=== PATIENT | male | born 1965 | race Hispanic/Latino ===

== ENCOUNTER 2024-07-08 06:25 | Day surgery (SDC) | payer OTHER ==
[2024-07-08] VITALS (10 sets, daily range): BP systolic 98–164; BP diastolic 5–66; PULSE 58–75; RESP 14–18; TEMP 97.3–97.5
[~2024-07-08] VITALS: Ht 170.2 cm; Wt 98.4 kg
[~2024-07-08 06:25] MED LIST: ATOR40TA69 PO; DULA1.5P SQ; EMPA25TA PO; INSU10VI3 SQ; METF-527 PO; SACU1TAB7 PO; SERT-438 PO
[2024-07-08] MEDS: 0.9%NACL 1000ML 1,000 ML IV ONE (07:01)
[2024-07-08] MEDS ORDERED: proPOFol 10 MG/ML 20ML VIAL IV ONE ×2 (08:33→09:05)
== END 2024-07-08 10:05 | disposition home or self-care (01) ==
LOC: ENDO 06:25 → DAH 06:25 → ENDO 10:05
PROVIDERS: ATTEND Internal Medicine Gastroenterology
DX: Z12.11 Encounter for screening for malignant neoplasm of colon (principal); D12.3 Benign neoplasm of transverse colon; Z86.0100 Personal history of colon polyps, unspecified; K57.30 Diverticulosis of large intestine without perforation or abscess without bleeding; E66.9 Obesity, unspecified; D3A.026 Benign carcinoid tumor of the rectum; R93.2 Abnormal findings on diagnostic imaging of liver and biliary tract; K80.20 Calculus of gallbladder without cholecystitis without obstruction; K21.00 Gastro-esophageal reflux disease with esophagitis, without bleeding; K29.30 Chronic superficial gastritis without bleeding; I10 Essential (primary) hypertension; E78.5 Hyperlipidemia, unspecified; E11.9 Type 2 diabetes mellitus without complications; I25.2 Old myocardial infarction; Z95.1 Presence of aortocoronary bypass graft; Z79.4 Long term (current) use of insulin; Z79.82 Long term (current) use of aspirin; Z79.899 Other long term (current) drug therapy
CPT/HCPCS: 45385; 82948 ×2; J7030 ×2; J2704; A4620; A4215 ×2; A4223; A4222; A4221; A4663; A4606; J3490